=== PATIENT | female | born 1945 | race Caucasian/White ===

== ENCOUNTER 2016-08-25 08:40 | Inpatient (IN) | payer OTHER, MEDICAID ==
[~2016-08-25] VITALS: Ht 154.9 cm; Wt 55.2 kg
[~2016-08-25 08:40] MED LIST: ALBU18; ALEN70TA2; AMLO5TAB2 PO; ASP81EC PO; CARV3.1213 PO; FLUT250M9; HYDR-531 PO; LISI-713; MORP1TAB13 PO; NITR0.4S29 SL; OMEP20TA44; ROSU10TA16; VERA120T2
[2016-08-25 09:21] LABS: Hematocrit 34.9 % (36.0-46.0); Hemoglobin 11.6 g/dL (12.2-16.2); Mean Corpuscular Hemoglobin 30.9 pg (28.0-32.0); Mean Corpuscular Hgb Conc. 33.3 g/dL (32.0-36.0); Mean Corpuscular Volume 92.6 fL (80.0-100.0); Mean Platelet Volume 7.3 fL (7.4-10.4); Platelet Count (auto) 244 10^3/uL (140-450); SUSPECT VIEW TRANSMISSION; White Blood Cell 17.3 10^3/uL (4.4-10.8)
[2016-08-25 09:23] LABS: Metamyelocytes % 0; Myelocytes % 0; Promyelocytes % 0; Reactive Lymphocytes 0
[2016-08-25] MEDS ORDERED: methylPREDNISolone SOD SUCC 125 MG/2 ML VL IV ONE (10:00)
[2016-08-25] MEDS ORDERED: ALBUTEROL SULF 2.5 MG/0.5ML(0.5%) NEB SOLN HHN STA (10:08)
[2016-08-25 10:09] LABS: Albumin 3.4 g/dL (3.4-5.0); BUN/Creatinine Ratio 32.3; Bilirubin, Total 0.4 mg/dL (0.2-1.0); Calcium 9.1 mg/dL (8.5-10.1); Potassium 3.7 mmol/L (3.5-5.1); Total Protein 6.9 g/dL (6.4-8.2)
[2016-08-25] MEDS ORDERED: SODIUM CHLORIDE 0.9% 250 ML IV ONE (10:15)
[2016-08-25] MEDS ORDERED: LORazepam 0.5 MG TAB PO PRN (10:15)
[2016-08-25] MEDS ORDERED: NITROGLYCERIN 0.4 MG SL TAB SL PRN (10:15)
[2016-08-25] MEDS ORDERED: TEMAZEPAM 15 MG CAP PO PRN (10:15)
[2016-08-25] MEDS ORDERED: MORPHINE SULF INJ 2 MG/ML SYRINGE 1ML IV PRN ×2 (10:15)
[2016-08-25] MEDS ORDERED: IPRATROPIUM BROM 0.5 MG/2.5ML INH SOL NEB ONE (10:15)
[2016-08-25] MEDS ORDERED: PROMETHAZINE HCL 25 MG/ML 1ML IV PRN (10:15)
[2016-08-25] MEDS ORDERED: ACETAMINOPHEN 500 MG TAB PO PRN (10:15)
[2016-08-25] MEDS ORDERED: LACTULOSE 20Gm/30ML SOLN PO PRN (10:15)
[2016-08-25] MEDS ORDERED: ALBUTEROL SULF 2.5 MG/0.5ML(0.5%) NEB SOLN NEB PRN (10:15)
[2016-08-25] MEDS: LEVOFLOXACIN 500MG 100 ML IV SCH (10:30)
[2016-08-25] MEDS: SODIUM CHLORIDE 0.9% 1,000 ML IV SCH ×2 (10:42→23:34)
[2016-08-25] MEDS ORDERED: VERAPAMIL HCL 120 mg ER tab PO ONE (10:45)
[2016-08-25] MEDS ORDERED: PANTOPRAZOLE 40 MG TAB PO ONE (10:45)
[2016-08-25] MEDS ORDERED: ASPirin-EC 81 mg tab PO ONE (10:45)
[2016-08-25] MEDS ORDERED: CARVEDILOL 3.125 MG TAB PO ONE (10:45)
[2016-08-25] MEDS: ENOXAPARIN SOD 40 MG/0.4 ML SYRINGE SC SCH (10:45)
[2016-08-25] MEDS ORDERED: amLODIPine BESYLATE 5 MG TAB PO ONE (10:45)
[2016-08-25] MEDS ORDERED: LISINOPRIL 10 MG TAB PO ONE (10:45)
[2016-08-25 10:51] LABS: B-Type Natriuretic Peptide 72.09 pg/mL (0-100)
[2016-08-25 11:08] LABS: Temperature: 22.5 C (20.0-25.0)
[2016-08-25] MEDS: IPRATROPIUM BROM 0.5 MG/2.5ML INH SOL NEB SCH ×2 (12:00→18:00)
[2016-08-25] MEDS: ALBUTEROL SULF 2.5 MG/0.5ML(0.5%) NEB SOLN NEB SCH ×2 (12:00→18:00)
[2016-08-25 12:25] VITALS: BP 122/60
[2016-08-25 12:38] VITALS: BP 122/60
[2016-08-25 13:32] LABS: Ovalocytes FEW; Platelet Estimate Adequate; Stomatocytes Few
[2016-08-25] MEDS: methylPREDNISolone SOD SUCC 40 MG/ML VL IV SCH ×2 (16:37→22:17)
[2016-08-25 17:29] VITALS: BP 121/65
[2016-08-25] MEDS: BUDESONIDE (INHALATION) 0.5 MG/2 ML NEB NEB SCH (18:00)
[2016-08-25 22:00] VITALS: BP 161/76
[2016-08-25] MEDS ORDERED: PATIENTS OWN MEDICATION PO SCH ×2 (22:00)
[2016-08-25] MEDS: HYDROcodone-ACET 5/325MG TAB PO PRN (22:17)
[2016-08-25] MEDS: ATORVASTATIN 20 MG TAB PO SCH (22:18)
[2016-08-26 01:15] VITALS: BP 161/76
[2016-08-26 05:00] VITALS: BP 155/73
[2016-08-26] MEDS: methylPREDNISolone SOD SUCC 40 MG/ML VL IV SCH ×4 (05:04→22:16)
[2016-08-26] MEDS: ALBUTEROL SULF 2.5 MG/0.5ML(0.5%) NEB SOLN NEB SCH ×4 (06:38→19:33)
[2016-08-26] MEDS: IPRATROPIUM BROM 0.5 MG/2.5ML INH SOL NEB SCH ×4 (06:38→19:33)
[2016-08-26] MEDS: BUDESONIDE (INHALATION) 0.5 MG/2 ML NEB NEB SCH ×2 (06:38→19:33)
[2016-08-26 07:29] LABS: Basophils # (auto) 0 uL; Eosinophils # (auto) 0 uL; Hematocrit 36.1 % (36.0-46.0); Hemoglobin 11.9 g/dL (12.2-16.2); Lymphocytes # (auto) 1.3 uL; Lymphocytes % (auto) 6.4 % (10.0-50.0); Mean Corpuscular Hemoglobin 30.9 pg (28.0-32.0); Mean Corpuscular Hgb Conc. 33.1 g/dL (32.0-36.0); Mean Corpuscular Volume 93.3 fL (80.0-100.0); Mean Platelet Volume 7.8 fL (7.4-10.4); Monocytes # (auto) 0.6 uL; Neutrophils # (auto) 18.6 uL; Neutrophils % (auto) 90.6 % (37.0-80.0); Platelet Count (auto) 250 10^3/uL (140-450); Red Cell Distribution Width 13.7 % (11.6-16.0); White Blood Cell 20.6 10^3/uL (4.4-10.8)
[2016-08-26 08:06] LABS: Cholesterol 163 mg/dL (<200); HDL Cholesterol 117 mg/dL (40-59); LDL Cholesterol 50 mg/dL (<100); Triglycerides 57 mg/dL (<150)
[2016-08-26 09:00] VITALS: BP 132/60
[2016-08-26] MEDS: LEVOFLOXACIN 500MG 100 ML IV SCH (09:45)
[2016-08-26] MEDS: LISINOPRIL 10 MG TAB PO SCH (09:46)
[2016-08-26] MEDS: ASPirin-EC 81 mg tab PO SCH (09:46)
[2016-08-26] MEDS: CARVEDILOL 3.125 MG TAB PO SCH (09:47)
[2016-08-26] MEDS: HYDROcodone-ACET 5/325MG TAB PO PRN ×2 (09:47→22:16)
[2016-08-26] MEDS: PANTOPRAZOLE 40 MG TAB PO SCH (09:48)
[2016-08-26] MEDS: amLODIPine BESYLATE 5 MG TAB PO SCH (09:48)
[2016-08-26] MEDS: ENOXAPARIN SOD 40 MG/0.4 ML SYRINGE SC SCH (09:51)
[2016-08-26] MEDS ORDERED: VERAPAMIL HCL 120 mg ER tab PO SCH (10:00)
[2016-08-26] MEDS: SODIUM CHLORIDE 0.9% 1,000 ML IV SCH (12:54)
[2016-08-26 13:00] VITALS: BP 118/100
[2016-08-26 15:00] VITALS: BP 145/54
[2016-08-26] MEDS ORDERED: VERA1TAB9 PO (16:14)
[2016-08-26] MEDS ORDERED: guaiFENesin 200 MG/10 ML UD PO PRN (16:30)
[2016-08-26 21:43] VITALS: BP 154/72
[2016-08-26] MEDS: ATORVASTATIN 20 MG TAB PO SCH (22:16)
[2016-08-27] MEDS: SODIUM CHLORIDE 0.9% 1,000 ML IV SCH ×2 (02:14→14:05)
[2016-08-27] MEDS: methylPREDNISolone SOD SUCC 40 MG/ML VL IV SCH ×4 (04:34→22:22)
[2016-08-27] MEDS: HYDROcodone-ACET 5/325MG TAB PO PRN (04:44)
[2016-08-27 04:59] VITALS: BP 162/74
[2016-08-27 06:00] VITALS: BP 148/69
[2016-08-27] MEDS: IPRATROPIUM BROM 0.5 MG/2.5ML INH SOL NEB SCH ×4 (06:21→18:38)
[2016-08-27] MEDS: BUDESONIDE (INHALATION) 0.5 MG/2 ML NEB NEB SCH ×2 (06:22→18:35)
[2016-08-27] MEDS: ALBUTEROL SULF 2.5 MG/0.5ML(0.5%) NEB SOLN NEB SCH ×4 (06:22→18:38)
[2016-08-27 09:00] VITALS: BP 149/75
[2016-08-27] MEDS: LEVOFLOXACIN 500MG 100 ML IV SCH (09:29)
[2016-08-27] MEDS: VERAPAMIL HCL 40 MG TAB PO SCH (09:32)
[2016-08-27] MEDS: MORPHINE SULF 30 mg ER tab PO PRN ×2 (09:32→22:24)
[2016-08-27] MEDS: CARVEDILOL 3.125 MG TAB PO SCH (09:33)
[2016-08-27] MEDS: LISINOPRIL 10 MG TAB PO SCH (09:33)
[2016-08-27] MEDS: ASPirin-EC 81 mg tab PO SCH (09:34)
[2016-08-27] MEDS: PANTOPRAZOLE 40 MG TAB PO SCH (09:34)
[2016-08-27] MEDS: amLODIPine BESYLATE 5 MG TAB PO SCH (09:34)
[2016-08-27] MEDS: ENOXAPARIN SOD 40 MG/0.4 ML SYRINGE SC SCH (09:44)
[2016-08-27 13:00] VITALS: BP 147/91
[2016-08-27 15:00] VITALS: BP 144/71
[2016-08-27 21:51] VITALS: BP 120/54
[2016-08-27] MEDS: ATORVASTATIN 20 MG TAB PO SCH (22:22)
[2016-08-28] MEDS: ALBUTEROL SULF 2.5 MG/0.5ML(0.5%) NEB SOLN NEB SCH ×4 (01:15→18:31)
[2016-08-28] MEDS: IPRATROPIUM BROM 0.5 MG/2.5ML INH SOL NEB SCH ×4 (01:15→18:31)
[2016-08-28] MEDS: methylPREDNISolone SOD SUCC 40 MG/ML VL IV SCH ×4 (03:35→22:29)
[2016-08-28] MEDS: SODIUM CHLORIDE 0.9% 1,000 ML IV SCH ×2 (04:54→18:23)
[2016-08-28 05:00] VITALS: BP 141/66
[2016-08-28 06:23] LABS: Basophils # (auto) 0 uL; Eosinophils # (auto) 0 uL; Hemoglobin 11.8 g/dL (12.2-16.2); Lymphocytes # (auto) 0.9 uL; Lymphocytes % (auto) 7.3 % (10.0-50.0); Mean Corpuscular Hemoglobin 30.4 pg (28.0-32.0); Mean Corpuscular Hgb Conc. 32.7 g/dL (32.0-36.0); Mean Platelet Volume 7.9 fL (7.4-10.4); Monocytes # (auto) 0.5 uL; Neutrophils # (auto) 11.1 uL; Neutrophils % (auto) 88.7 % (37.0-80.0); Platelet Count (auto) 265 10^3/uL (140-450); Red Cell Distribution Width 13.4 % (11.6-16.0); White Blood Cell 12.6 10^3/uL (4.4-10.8)
[2016-08-28 06:44] LABS: Calcium 8.6 mg/dL (8.5-10.1); Potassium 3.9 mmol/L (3.5-5.1)
[2016-08-28] MEDS: BUDESONIDE (INHALATION) 0.5 MG/2 ML NEB NEB SCH ×2 (07:00→18:31)
[2016-08-28 09:24] VITALS: BP 158/85
[2016-08-28] MEDS: VERAPAMIL HCL 40 MG TAB PO SCH (09:38)
[2016-08-28] MEDS: CARVEDILOL 3.125 MG TAB PO SCH (09:39)
[2016-08-28] MEDS: ASPirin-EC 81 mg tab PO SCH (09:39)
[2016-08-28] MEDS: LISINOPRIL 10 MG TAB PO SCH (09:39)
[2016-08-28] MEDS: PANTOPRAZOLE 40 MG TAB PO SCH (09:40)
[2016-08-28] MEDS: ENOXAPARIN SOD 40 MG/0.4 ML SYRINGE SC SCH (09:40)
[2016-08-28] MEDS: amLODIPine BESYLATE 5 MG TAB PO SCH (09:40)
[2016-08-28] MEDS: LEVOFLOXACIN 500MG 100 ML IV SCH (10:19)
[2016-08-28 13:00] VITALS: BP 146/61
[2016-08-28 17:00] VITALS: BP 163/74
[2016-08-28 21:16] VITALS: BP 163/74
[2016-08-28 22:21] VITALS: BP 163/69
[2016-08-28] MEDS: ATORVASTATIN 20 MG TAB PO SCH (22:27)
[2016-08-29] MEDS: IPRATROPIUM BROM 0.5 MG/2.5ML INH SOL NEB SCH ×3 (00:29→13:41)
[2016-08-29] MEDS: ALBUTEROL SULF 2.5 MG/0.5ML(0.5%) NEB SOLN NEB SCH ×3 (00:29→13:41)
[2016-08-29] MEDS: methylPREDNISolone SOD SUCC 40 MG/ML VL IV SCH ×3 (04:02→11:02)
[2016-08-29 04:44] VITALS: BP 157/84
[2016-08-29] MEDS: HYDROcodone-ACET 5/325MG TAB PO PRN (06:35)
[2016-08-29] MEDS: BUDESONIDE (INHALATION) 0.5 MG/2 ML NEB NEB SCH (06:35)
[2016-08-29] MEDS: SODIUM CHLORIDE 0.9% 1,000 ML IV SCH (07:34)
[2016-08-29 09:00] VITALS: BP 153/70
[2016-08-29] MEDS: LEVOFLOXACIN 500MG 100 ML IV SCH ×2 (10:00→11:02)
[2016-08-29] MEDS: ENOXAPARIN SOD 40 MG/0.4 ML SYRINGE SC SCH ×2 (10:00→11:02)
[2016-08-29] MEDS: LISINOPRIL 10 MG TAB PO SCH (10:00)
[2016-08-29] MEDS: VERAPAMIL HCL 40 MG TAB PO SCH (11:02)
[2016-08-29] MEDS: CARVEDILOL 3.125 MG TAB PO SCH (11:03)
[2016-08-29] MEDS: amLODIPine BESYLATE 5 MG TAB PO SCH (11:03)
[2016-08-29] MEDS: ASPirin-EC 81 mg tab PO SCH (11:03)
[2016-08-29] MEDS: PANTOPRAZOLE 40 MG TAB PO SCH (11:03)
[2016-08-29 11:42] VITALS: BP 153/70
[2016-08-29 12:59] VITALS: BP 145/71
== END 2016-08-29 15:12 | disposition home health service (06) | DRG 189 ==
LOC: EDBD 08:40 → ER 08:44 → TELE 08:45 → TELE-EAST 12:28
PROVIDERS: ADMIT Internal Medicine; ATTEND Family Medicine
DX: J96.20 Acute and chronic respiratory failure, unspecified whether with hypoxia or hypercapnia (principal); J44.1 Chronic obstructive pulmonary disease with (acute) exacerbation; E78.5 Hyperlipidemia, unspecified; M81.0 Age-related osteoporosis without current pathological fracture; I50.9 Heart failure, unspecified; G56.02 Carpal tunnel syndrome, left upper limb; I11.0 Hypertensive heart disease with heart failure; I25.2 Old myocardial infarction; Z87.891 Personal history of nicotine dependence; Z99.81 Dependence on supplemental oxygen; Z98.49 Cataract extraction status, unspecified eye; Z98.890 Other specified postprocedural states; Z91.040 Latex allergy status; Z79.82 Long term (current) use of aspirin; Z79.899 Other long term (current) drug therapy
CPT/HCPCS: 36415; 36600; 71010; 71020; 80048; 80053; 80061; 82805; 83605; 83735; 83880; 84484; 85007; 85025; 85027; 87040; 87400; 93005; 94640; 94644; 96374; J1956

== ENCOUNTER 2016-10-13 19:21 | Emergency (ER) | payer OTHER, MEDICAID ==
[~2016-10-13] VITALS: Ht 154.9 cm; Wt 63.5 kg
[~2016-10-13 19:21] MED LIST changes: -VERA120T2; +VERA1TAB9 PO
[2016-10-13 23:34] LABS: Basophils # (auto) 0.1 uL; Basophils % (auto) 0.6 % (0.0-2.0); Eosinophils # (auto) 0.4 uL; Hematocrit 34.8 % (36.0-46.0); Hemoglobin 11.5 g/dL (12.2-16.2); Lymphocytes # (auto) 2.8 uL; Lymphocytes % (auto) 28.1 % (10.0-50.0); Mean Corpuscular Hemoglobin 30.4 pg (28.0-32.0); Mean Corpuscular Volume 92.2 fL (80.0-100.0); Mean Platelet Volume 7.1 fL (7.4-10.4); Monocytes # (auto) 0.7 uL; Monocytes % (auto) 7.4 % (0.0-12.0); Neutrophils # (auto) 5.9 uL; Neutrophils % (auto) 59.9 % (37.0-80.0); Platelet Count (auto) 328 10^3/uL (140-450); Red Cell Distribution Width 14.1 % (11.6-16.0); White Blood Cell 9.8 10^3/uL (4.4-10.8)
[2016-10-13 23:42] LABS: INR 1.05 (0.9-1.15); Partial Thromboplastin Time 29.2 sec (22.64-33.71); Prothrombin Time 10.8 sec (9.37-12.3)
[2016-10-13 23:51] LABS: Albumin 3.8 g/dL (3.4-5.0); Calcium 9.3 mg/dL (8.5-10.1); Magnesium 2.1 mg/dL (1.6-2.6); Potassium 3.6 mmol/L (3.5-5.1)
[2016-10-13 23:53] LABS: BUN/Creatinine Ratio 29.2
[2016-10-13 23:58] LABS: B-Type Natriuretic Peptide 35.08 pg/mL (0-100)
[2016-10-13 23:59] LABS: Bilirubin, Total 0.4 mg/dL (0.2-1.0); Total Protein 7.6 g/dL (6.4-8.2)
[2016-10-14 00:14] LABS: Temperature: 21.3 C (20.0-25.0)
[2016-10-14] MEDS ORDERED: IPRATROPIUM BROM 0.5 MG/2.5ML INH SOL NEB ONE (01:45)
[2016-10-14] MEDS ORDERED: ALBUTEROL SULF 2.5 MG/0.5ML(0.5%) NEB SOLN NEB ONE (01:45)
[2016-10-14 06:57] VITALS: BP 136/59
== END 2016-10-14 07:22 | disposition home or self-care (01) ==
LOC: ER 19:21
DX: J44.1 Chronic obstructive pulmonary disease with (acute) exacerbation (principal); R07.89 Other chest pain; I48.91 Unspecified atrial fibrillation; E78.5 Hyperlipidemia, unspecified; I11.0 Hypertensive heart disease with heart failure; I50.9 Heart failure, unspecified; I25.2 Old myocardial infarction; B19.20 Unspecified viral hepatitis C without hepatic coma; F41.9 Anxiety disorder, unspecified; Z91.040 Latex allergy status; Z79.899 Other long term (current) drug therapy
CPT/HCPCS: 36415; 71020; 80053; 83735; 83880; 84443; 84484; 85025; 85379; 85610; 85730; 93005; 94640; 94761

== ENCOUNTER 2016-10-17 05:57 | Inpatient (IN) | payer OTHER, MEDICAID ==
[~2016-10-17] VITALS: Ht 154.9 cm; Wt 58.8 kg
[2016-10-17 06:23] LABS: Basophils # (auto) 0.1 uL; Basophils % (auto) 0.6 % (0.0-2.0); Eosinophils # (auto) 0.1 uL; Eosinophils % (auto) 0.9 % (0.0-7.0); Hematocrit 35.3 % (36.0-46.0); Hemoglobin 11.9 g/dL (12.2-16.2); Lymphocytes # (auto) 1.8 uL; Lymphocytes % (auto) 10.7 % (10.0-50.0); Mean Corpuscular Hemoglobin 30.7 pg (28.0-32.0); Mean Corpuscular Hgb Conc. 33.7 g/dL (32.0-36.0); Mean Corpuscular Volume 91.1 fL (80.0-100.0); Mean Platelet Volume 7.3 fL (7.4-10.4); Monocytes # (auto) 1.1 uL; Monocytes % (auto) 6.5 % (0.0-12.0); Neutrophils # (auto) 13.7 uL; Neutrophils % (auto) 81.3 % (37.0-80.0); Platelet Count (auto) 346 10^3/uL (140-450); Red Cell Distribution Width 14.4 % (11.6-16.0); White Blood Cell 16.9 10^3/uL (4.4-10.8)
[2016-10-17 06:58] LABS: Albumin 3.5 g/dL (3.4-5.0); BUN/Creatinine Ratio 27.8; Bilirubin, Total 0.4 mg/dL (0.2-1.0); Calcium 9.1 mg/dL (8.5-10.1); Potassium 3.9 mmol/L (3.5-5.1); Total Protein 7.6 g/dL (6.4-8.2)
[2016-10-17] MEDS ORDERED: METOPROLOL TARTRATE 50 MG TAB PO ONE (07:00)
[2016-10-17] MEDS ORDERED: cefTRIAXone 1GM/50ML D5W 50 ML IV ONE (07:30)
[2016-10-17] MEDS ORDERED: AZITHROMYCIN 500MG/D5W 250ML 250 ML IV ONE (07:30)
[2016-10-17 07:40] LABS: INR 1.12 (0.9-1.15); Prothrombin Time 11.5 sec (9.37-12.3)
[2016-10-17] MEDS ORDERED: DEXTROSE (50%) 50ML SYRG IV PRN (09:45)
[2016-10-17] MEDS ORDERED: DOCUSATE SOD 100 MG CAP PO PRN (10:00)
[2016-10-17] MEDS ORDERED: ONDANSETRON HCL 4 MG/2 ML VIAL IV PRN (10:00)
[2016-10-17] MEDS ORDERED: NITROGLYCERIN 0.4 MG SL TAB SL PRN (10:00)
[2016-10-17] MEDS ORDERED: MORPHINE SULF INJ 2 MG/ML SYRINGE 1ML IV PRN ×2 (10:00)
[2016-10-17] MEDS ORDERED: TEMAZEPAM 15 MG CAP PO PRN (10:00)
[2016-10-17] MEDS ORDERED: ACETAMINOPHEN 325 MG TAB PO PRN (10:00)
[2016-10-17] MEDS: PANTOPRAZOLE 40 MG TAB PO SCH (10:15)
[2016-10-17] MEDS: HCTZ 25 MG TAB PO SCH (10:15)
[2016-10-17] MEDS: VERAPAMIL HCL 120 mg ER tab PO SCH (10:15)
[2016-10-17] MEDS: POTASSIUM CHL 10 Meq TABLET PO SCH (10:15)
[2016-10-17] MEDS: CARVEDILOL 3.125 MG TAB PO SCH ×2 (10:15→21:36)
[2016-10-17] MEDS: ASPirin-EC 81 mg tab PO SCH (10:15)
[2016-10-17] MEDS: LISINOPRIL 20 MG TAB PO SCH (10:15)
[2016-10-17] MEDS: MULTIPLE VITAMIN TAB PO SCH (10:15)
[2016-10-17] MEDS: MORPHINE SULF 30 mg ER tab PO SCH ×2 (10:47→21:36)
[2016-10-17 10:48] VITALS: BP 96/59
[2016-10-17] MEDS: ALBUTEROL SULF 2.5 MG/0.5ML(0.5%) NEB SOLN NEB SCH ×2 (11:15→19:23)
[2016-10-17] MEDS: IPRATROPIUM BROM 0.5 MG/2.5ML INH SOL NEB SCH ×2 (11:16→19:23)
[2016-10-17] MEDS: BUDESONIDE (INHALATION) 0.5 MG/2 ML NEB NEB SCH ×2 (11:16→19:24)
[2016-10-17 11:23] LABS: B-Type Natriuretic Peptide 50.56 pg/mL (0-100)
[2016-10-17] MEDS: InsuLIN REG 1unit/0.01ml Soln (100units/ml) SC SCH ×3 (11:30→21:37)
[2016-10-17] MEDS: ACCU-CHEK COMFORT CURVE STRIP VI SCH ×3 (11:30→21:37)
[2016-10-17] MEDS ORDERED: APIX2.5T BC (11:36)
[2016-10-17] MEDS ORDERED: BECL0.07 INH (11:40)
[2016-10-17] MEDS ORDERED: IPRIH INH (11:40)
[2016-10-17] MEDS ORDERED: HCTZ25T PO (11:41)
[2016-10-17 12:04] LABS: Temperature: 22.1 C (20.0-25.0)
[2016-10-17] MEDS: SODIUM CHLOR 0.9% PF (SALINE LOCK) 10ML VIAL IV SCH ×2 (14:00→21:37)
[2016-10-17 15:00] VITALS: BP 107/65
[2016-10-17] MEDS: CRESTOR 10MG TABLET PO SCH (21:37)
[2016-10-17 23:21] VITALS: BP 136/96
[2016-10-18] MEDS: BUDESONIDE (INHALATION) 0.5 MG/2 ML NEB NEB SCH ×2 (00:30→19:12)
[2016-10-18] MEDS: IPRATROPIUM BROM 0.5 MG/2.5ML INH SOL NEB SCH ×4 (00:39→19:11)
[2016-10-18] MEDS: ALBUTEROL SULF 2.5 MG/0.5ML(0.5%) NEB SOLN NEB SCH ×4 (00:39→19:11)
[2016-10-18] MEDS: HYDROcodone-ACET 5/325MG TAB PO PRN ×2 (01:24→19:49)
[2016-10-18 05:24] LABS: Basophils # (auto) 0.1 uL; Basophils % (auto) 0.7 % (0.0-2.0); Eosinophils # (auto) 0.3 uL; Eosinophils % (auto) 3.1 % (0.0-7.0); Hematocrit 31.3 % (36.0-46.0); Hemoglobin 10.6 g/dL (12.2-16.2); Lymphocytes # (auto) 2.4 uL; Lymphocytes % (auto) 26.6 % (10.0-50.0); Mean Corpuscular Hemoglobin 30.8 pg (28.0-32.0); Mean Corpuscular Hgb Conc. 33.8 g/dL (32.0-36.0); Mean Corpuscular Volume 91.3 fL (80.0-100.0); Mean Platelet Volume 7.1 fL (7.4-10.4); Monocytes # (auto) 0.9 uL; Monocytes % (auto) 9.4 % (0.0-12.0); Neutrophils # (auto) 5.5 uL; Neutrophils % (auto) 60.2 % (37.0-80.0); Platelet Count (auto) 322 10^3/uL (140-450); Red Cell Distribution Width 14.4 % (11.6-16.0); White Blood Cell 9.1 10^3/uL (4.4-10.8)
[2016-10-18 05:26] VITALS: BP 122/55
[2016-10-18 05:40] LABS: Albumin 2.9 g/dL (3.4-5.0); BUN/Creatinine Ratio 34.7; Calcium 8.7 mg/dL (8.5-10.1); Potassium 4.2 mmol/L (3.5-5.1)
[2016-10-18 05:51] LABS: Bilirubin, Total 0.2 mg/dL (0.2-1.0); Total Protein 6.4 g/dL (6.4-8.2)
[2016-10-18] MEDS: SODIUM CHLOR 0.9% PF (SALINE LOCK) 10ML VIAL IV SCH ×3 (06:20→18:06)
[2016-10-18] MEDS: InsuLIN REG 1unit/0.01ml Soln (100units/ml) SC SCH ×4 (06:38→22:35)
[2016-10-18] MEDS: ACCU-CHEK COMFORT CURVE STRIP VI SCH ×4 (06:38→22:26)
[2016-10-18 08:00] VITALS: BP 122/53
[2016-10-18] MEDS ORDERED: cefTRIAXone 1GM/50ML D5W 50 ML IV SCH (09:00)
[2016-10-18] MEDS ORDERED: AZITHROMYCIN 500MG/D5W 250ML 250 ML IV SCH (10:00)
[2016-10-18] MEDS ORDERED: ALENDRONATE SODIUM 10 MG TAB PO SCH (10:00)
[2016-10-18] MEDS: ASPirin-EC 81 mg tab PO SCH (10:26)
[2016-10-18] MEDS: MORPHINE SULF 30 mg ER tab PO SCH (10:40)
[2016-10-18] MEDS: HCTZ 25 MG TAB PO SCH (10:41)
[2016-10-18] MEDS: PANTOPRAZOLE 40 MG TAB PO SCH (10:41)
[2016-10-18] MEDS: VERAPAMIL HCL 120 mg ER tab PO SCH (10:42)
[2016-10-18] MEDS: MULTIPLE VITAMIN TAB PO SCH (10:43)
[2016-10-18] MEDS: CARVEDILOL 3.125 MG TAB PO SCH ×2 (10:43→22:26)
[2016-10-18] MEDS: LISINOPRIL 20 MG TAB PO SCH (10:44)
[2016-10-18] MEDS: POTASSIUM CHL 10 Meq TABLET PO SCH (10:44)
[2016-10-18] MEDS: methylPREDNISolone SOD SUCC 40 MG/ML VL IV SCH ×2 (11:55→18:06)
[2016-10-18] MEDS: APIXABAN 2.5 MG TAB PO SCH ×2 (11:56→22:26)
[2016-10-18] MEDS: Boost Glucose Control 8 Ounces PO SCH ×2 (12:00→18:06)
[2016-10-18 12:51] VITALS: BP 113/48
[2016-10-18 17:17] VITALS: BP 141/62
[2016-10-18 20:00] VITALS: BP 144/60
[2016-10-18] MEDS: CRESTOR 10MG TABLET PO SCH (22:00)
[2016-10-18] MEDS ORDERED: PATIENTS OWN MEDICATION PO SCH ×2 (22:00)
[2016-10-18] MEDS ORDERED: MORPHINE SULF 30 mg ER tab PO ONE (22:30)
[2016-10-18 22:52] VITALS: BP 144/60
[2016-10-19] VITALS (7 sets, daily range): BP systolic 140–153; BP diastolic 61–70
[2016-10-19] MEDS: methylPREDNISolone SOD SUCC 40 MG/ML VL IV SCH ×3 (00:19→12:08)
[2016-10-19] MEDS: IPRATROPIUM BROM 0.5 MG/2.5ML INH SOL NEB SCH ×3 (00:30→11:54)
[2016-10-19] MEDS: ALBUTEROL SULF 2.5 MG/0.5ML(0.5%) NEB SOLN NEB SCH ×3 (00:30→11:54)
[2016-10-19] MEDS: SODIUM CHLOR 0.9% PF (SALINE LOCK) 10ML VIAL IV SCH ×2 (06:08→14:00)
[2016-10-19] MEDS: ACCU-CHEK COMFORT CURVE STRIP VI SCH ×2 (06:09→11:30)
[2016-10-19] MEDS: BUDESONIDE (INHALATION) 0.5 MG/2 ML NEB NEB SCH (06:30)
[2016-10-19] MEDS: HYDROcodone-ACET 5/325MG TAB PO PRN (06:33)
[2016-10-19 06:39] LABS: Basophils # (auto) 0 uL; Eosinophils # (auto) 0 uL; Hematocrit 33.3 % (36.0-46.0); Hemoglobin 11.3 g/dL (12.2-16.2); Lymphocytes % (auto) 7.7 % (10.0-50.0); Mean Corpuscular Hgb Conc. 33.8 g/dL (32.0-36.0); Mean Corpuscular Volume 91.7 fL (80.0-100.0); Mean Platelet Volume 7.3 fL (7.4-10.4); Monocytes # (auto) 0.3 uL; Monocytes % (auto) 2.1 % (0.0-12.0); Neutrophils # (auto) 11.8 uL; Neutrophils % (auto) 90.2 % (37.0-80.0); Platelet Count (auto) 379 10^3/uL (140-450); Red Cell Distribution Width 13.7 % (11.6-16.0); White Blood Cell 13.1 10^3/uL (4.4-10.8)
[2016-10-19] MEDS: InsuLIN REG 1unit/0.01ml Soln (100units/ml) SC SCH ×2 (06:49→11:30)
[2016-10-19 07:09] LABS: Albumin 3.1 g/dL (3.4-5.0); Calcium 9.4 mg/dL (8.5-10.1); Potassium 4.6 mmol/L (3.5-5.1)
[2016-10-19 07:12] LABS: BUN/Creatinine Ratio 31.5
[2016-10-19 07:14] LABS: Bilirubin, Total 0.3 mg/dL (0.2-1.0); Total Protein 7.2 g/dL (6.4-8.2)
[2016-10-19] MEDS: Boost Glucose Control 8 Ounces PO SCH ×2 (08:00→12:09)
[2016-10-19] MEDS: LISINOPRIL 20 MG TAB PO SCH (10:02)
[2016-10-19] MEDS: APIXABAN 2.5 MG TAB PO SCH (10:03)
[2016-10-19] MEDS: ASPirin-EC 81 mg tab PO SCH (10:03)
[2016-10-19] MEDS: MULTIPLE VITAMIN TAB PO SCH (10:03)
[2016-10-19] MEDS: PANTOPRAZOLE 40 MG TAB PO SCH (10:03)
[2016-10-19] MEDS: CARVEDILOL 3.125 MG TAB PO SCH (10:04)
[2016-10-19] MEDS: MORPHINE SULF 30 mg ER tab PO SCH (10:05)
[2016-10-19] MEDS: POTASSIUM CHL 10 Meq TABLET PO SCH (10:05)
[2016-10-19] MEDS: VERAPAMIL HCL 120 mg ER tab PO SCH (10:06)
[2016-10-19] MEDS: HCTZ 25 MG TAB PO SCH (10:06)
[2016-10-19] MEDS ORDERED: HCTZ25T PO (11:37)
[2016-10-19] MEDS ORDERED: DOXYCYCLINE 100 MG TAB/CAP PO ONE (11:45)
[2016-10-19] MEDS ORDERED: DOXY-216 PO (11:52)
== END 2016-10-19 17:00 | disposition home health service (06) | DRG 189 ==
LOC: EDBD 05:57 → ER 06:06 → TELE 06:07 → TELE-E-ADS 11:25 → TELE-CENTR 12:30
PROVIDERS: ADMIT Internal Medicine; ATTEND Internal Medicine
DX: J96.20 Acute and chronic respiratory failure, unspecified whether with hypoxia or hypercapnia (principal); I50.33 Acute on chronic diastolic (congestive) heart failure; J18.9 Pneumonia, unspecified organism; I13.0 Hypertensive heart and chronic kidney disease with heart failure and stage 1 through stage 4 chronic kidney disease, or unspecified chronic kidney disease; D68.69 Other thrombophilia; E44.0 Moderate protein-calorie malnutrition; J44.1 Chronic obstructive pulmonary disease with (acute) exacerbation; J98.11 Atelectasis; I48.92 Unspecified atrial flutter; I25.10 Atherosclerotic heart disease of native coronary artery without angina pectoris; D63.8 Anemia in other chronic diseases classified elsewhere; B19.20 Unspecified viral hepatitis C without hepatic coma; E11.21 Type 2 diabetes mellitus with diabetic nephropathy; N18.2 Chronic kidney disease, stage 2 (mild); E78.5 Hyperlipidemia, unspecified; J20.9 Acute bronchitis, unspecified; F41.9 Anxiety disorder, unspecified; I71.4 Abdominal aortic aneurysm, without rupture; N18.9 Chronic kidney disease, unspecified; T38.0X5A Adverse effect of glucocorticoids and synthetic analogues, initial encounter; Z99.81 Dependence on supplemental oxygen; I25.2 Old myocardial infarction; Z91.040 Latex allergy status; Z68.24 Body mass index [BMI] 24.0-24.9, adult
CPT/HCPCS: 36415; 71010; 80053; 82962; 83036; 83605; 83735; 83880; 84443; 84484; 85025; 85610; 87040; 87081; 93005; 94640; 96365; 96375; J0696; J1815

== ENCOUNTER 2016-11-11 07:59 | Inpatient (IN) | payer OTHER, MEDICAID ==
[~2016-11-11] VITALS: Ht 165.1 cm; Wt 72.6 kg
[~2016-11-11 07:59] MED LIST changes: -AMLO5TAB2 PO; +APIX2.5T BC; +BECL0.07 INH; +DOXY-216 PO; -FLUT250M9; +HCTZ25T PO; +IPRIH INH
[2016-11-11] MEDS ORDERED: SODIUM CHLORIDE 0.9% 1,000 ML IV ONE (09:16)
[2016-11-11 10:31] LABS: Basophils # (auto) 0.1 uL; Basophils % (auto) 0.4 % (0.0-2.0); Eosinophils # (auto) 0.2 uL; Eosinophils % (auto) 1.8 % (0.0-7.0); Hematocrit 30.8 % (36.0-46.0); Hemoglobin 10.4 g/dL (12.2-16.2); Lymphocytes # (auto) 1.9 uL; Mean Corpuscular Hemoglobin 30.4 pg (28.0-32.0); Mean Corpuscular Hgb Conc. 33.8 g/dL (32.0-36.0); Mean Corpuscular Volume 90.1 fL (80.0-100.0); Mean Platelet Volume 7.6 fL (7.4-10.4); Monocytes # (auto) 0.5 uL; Monocytes % (auto) 3.6 % (0.0-12.0); Neutrophils # (auto) 9.8 uL; Neutrophils % (auto) 79.2 % (37.0-80.0); Platelet Count (auto) 307 10^3/uL (140-450); Red Cell Distribution Width 14.7 % (11.6-16.0); White Blood Cell 12.4 10^3/uL (4.4-10.8)
[2016-11-11 10:49] LABS: INR 1.06 (0.9-1.15); Partial Thromboplastin Time 27.1 sec (22.64-33.71); Prothrombin Time 10.9 sec (9.37-12.3)
[2016-11-11 10:50] LABS: BUN/Creatinine Ratio 30.4; Calcium 9.4 mg/dL (8.5-10.1)
[2016-11-11] MEDS ORDERED: BACITRACIN TOP OINT 1 UD PKG TOP ONE (12:15)
[2016-11-11] MEDS ORDERED: ALENDRONATE SODIUM 10 MG TAB PO SCH (17:30)
[2016-11-11] MEDS ORDERED: HYDROcodone-ACET 10/325MG TAB PO PRN (17:30)
[2016-11-11] MEDS ORDERED: TEMAZEPAM 15 MG CAP PO PRN (17:45)
[2016-11-11] MEDS ORDERED: ACETAMINOPHEN 325 MG TAB PO PRN (17:45)
[2016-11-11] MEDS ORDERED: ONDANSETRON HCL 4 MG/2 ML VIAL IV PRN (17:45)
[2016-11-11] MEDS ORDERED: NITROGLYCERIN 0.4 MG SL TAB SL PRN (17:45)
[2016-11-11] MEDS ORDERED: LORazepam 0.5 MG TAB PO PRN (17:45)
[2016-11-11] MEDS ORDERED: DOCUSATE SOD 100 MG CAP PO PRN (17:45)
[2016-11-11] MEDS ORDERED: MORPHINE SULF INJ 2 MG/ML SYRINGE 1ML IV PRN (17:45)
[2016-11-11] MEDS ORDERED: MULTIPLE VITAMIN TAB PO ONE (18:00)
[2016-11-11] MEDS ORDERED: HCTZ 25 MG TAB PO ONE (18:00)
[2016-11-11] MEDS ORDERED: VERAPAMIL HCL 120 mg ER tab PO ONE (18:00)
[2016-11-11] MEDS ORDERED: PANTOPRAZOLE 40 MG TAB PO ONE (18:00)
[2016-11-11] MEDS ORDERED: LISINOPRIL 20 MG TAB PO ONE (18:00)
[2016-11-11] MEDS: IPRATROPIUM BROM 0.5 MG/2.5ML INH SOL NEB SCH (18:38)
[2016-11-11] MEDS: ALBUTEROL SULF 2.5 MG/0.5ML(0.5%) NEB SOLN NEB SCH (18:38)
[2016-11-11] MEDS: BUDESONIDE (INHALATION) 0.5 MG/2 ML NEB NEB SCH (18:39)
[2016-11-11 22:00] VITALS: BP 114/47
[2016-11-11] MEDS: CARVEDILOL 3.125 MG TAB PO SCH (22:00)
[2016-11-11] MEDS: BACITRACIN TOP OINT 1 UD PKG TOP SCH (22:00)
[2016-11-11] MEDS: MORPHINE SULF 30 mg ER tab PO SCH (22:26)
[2016-11-11] MEDS: SODIUM CHLOR 0.9% PF (SALINE LOCK) 10ML VIAL IV SCH (22:26)
[2016-11-11 22:32] VITALS: BP 114/47
[2016-11-12] VITALS (7 sets, daily range): BP systolic 90–114; BP diastolic 46–61
[2016-11-12] MEDS: IPRATROPIUM BROM 0.5 MG/2.5ML INH SOL NEB SCH ×4 (06:00→17:00)
[2016-11-12] MEDS: BUDESONIDE (INHALATION) 0.5 MG/2 ML NEB NEB SCH (06:00)
[2016-11-12] MEDS: ALBUTEROL SULF 2.5 MG/0.5ML(0.5%) NEB SOLN NEB SCH ×4 (06:00→17:00)
[2016-11-12] MEDS: SODIUM CHLOR 0.9% PF (SALINE LOCK) 10ML VIAL IV SCH ×2 (06:31→15:45)
[2016-11-12 06:39] LABS: BUN/Creatinine Ratio 67.1; Bilirubin, Total 0.4 mg/dL (0.2-1.0); Calcium 9.3 mg/dL (8.5-10.1); Potassium 3.6 mmol/L (3.5-5.1); Total Protein 5.8 g/dL (6.4-8.2)
[2016-11-12 06:57] LABS: Urine Bilirubin Negative (Negative); Urine Blood Negative /uL (Negative); Urine Color Yellow (Yellow); Urine Glucose Normal (Normal); Urine Ketone Negative (Negative); Urine Nitrite Negative (Negative); Urine RBC <1 /hpf (0 - 4); Urine Squamous Epithelial Cell FEW /hpf (<5); Urine Urobilinogen Normal (Negative)
[2016-11-12 08:21] LABS: Basophils # (auto) 0.1 uL; Basophils % (auto) 0.5 % (0.0-2.0); Eosinophils # (auto) 0.2 uL; Eosinophils % (auto) 1.6 % (0.0-7.0); Hematocrit 27.6 % (36.0-46.0); Hemoglobin 9.3 g/dL (12.2-16.2); Lymphocytes # (auto) 3.3 uL; Lymphocytes % (auto) 26.8 % (10.0-50.0); Mean Corpuscular Hemoglobin 30.8 pg (28.0-32.0); Mean Corpuscular Hgb Conc. 33.7 g/dL (32.0-36.0); Mean Corpuscular Volume 91.4 fL (80.0-100.0); Mean Platelet Volume 7.6 fL (7.4-10.4); Monocytes # (auto) 0.9 uL; Monocytes % (auto) 7.4 % (0.0-12.0); Neutrophils # (auto) 7.8 uL; Neutrophils % (auto) 63.7 % (37.0-80.0); Platelet Count (auto) 279 10^3/uL (140-450); Red Cell Distribution Width 14.8 % (11.6-16.0); White Blood Cell 12.3 10^3/uL (4.4-10.8)
[2016-11-12] MEDS ORDERED: LISINOPRIL 20 MG TAB PO SCH (10:00)
[2016-11-12] MEDS ORDERED: HCTZ 25 MG TAB PO SCH (10:00)
[2016-11-12] MEDS: CARVEDILOL 3.125 MG TAB PO SCH (10:00)
[2016-11-12] MEDS ORDERED: PANTOPRAZOLE 40 MG TAB PO SCH (10:00)
[2016-11-12] MEDS ORDERED: VERAPAMIL HCL 120 mg ER tab PO SCH (10:00)
[2016-11-12] MEDS ORDERED: MULTIPLE VITAMIN TAB PO SCH (10:00)
[2016-11-12] MEDS: MORPHINE SULF 30 mg ER tab PO SCH (10:00)
[2016-11-12] MEDS: BACITRACIN TOP OINT 1 UD PKG TOP SCH (10:46)
== END 2016-11-12 18:08 | disposition home or self-care (01) | DRG 880 ==
LOC: EDBD 07:59 → ER 08:00 → TELE 08:01 → TELE-EAST 19:45
PROVIDERS: ADMIT Internal Medicine; ATTEND Internal Medicine
PROC: 2Y41X5Z Packing of Nasal Region using Packing Material (ICD-10-PCS; principal; 2016-11-11)
DX: F41.9 Anxiety disorder, unspecified (principal); D68.69 Other thrombophilia; I48.92 Unspecified atrial flutter; I13.0 Hypertensive heart and chronic kidney disease with heart failure and stage 1 through stage 4 chronic kidney disease, or unspecified chronic kidney disease; R04.0 Epistaxis; D63.8 Anemia in other chronic diseases classified elsewhere; E78.5 Hyperlipidemia, unspecified; I50.9 Heart failure, unspecified; I25.10 Atherosclerotic heart disease of native coronary artery without angina pectoris; I48.2 Chronic atrial fibrillation; J44.9 Chronic obstructive pulmonary disease, unspecified; Z79.01 Long term (current) use of anticoagulants; N18.2 Chronic kidney disease, stage 2 (mild); I25.2 Old myocardial infarction; Z91.040 Latex allergy status
CPT/HCPCS: 36415; 80048; 80053; 81001; 83735; 85025; 85610; 85730; 94640; 96360; 96361